=== PATIENT | male | born 1960 | race Caucasian/White ===

== ENCOUNTER 2016-07-01 13:35 | Emergency (ER) ==
[2016-07-01] MEDS ORDERED: NS 1,000 ML IV ONE (14:08)
--- NOTE | 2016-07-01 14:08 | PROVIDER DOCUMENTATION ---
HPI-Male Problem - General Source: patient - History of Present Illness-Male Location of Complaint: reports: suprapubic Quality of Pain: reports: burning, dull Severity in ED: reports: moderate Onset/Duration: reports: abrupt, 24 hours ago Timing: reports: still present Urinary Symptoms: reports: dysuria, hematuria, low back pain. denies: dribbling , frequency, hesitancy, incontinent Associated Symptoms: reports: back/neck pain. denies: fatigue, fever/chills, nausea, vomiting, trouble walking Similar Symptoms Previously?: No Recently seen or treated by another doctor?: No <Chito Benavides - Last Filed: 07/01/16 16:32> - General Source: patient, family <Brayan Rick I - Last Filed: 07/01/16 16:54> - General Chief Complaint: Male Stated Complaint: BLOOD IN URINE Time Seen by Provider: 07/01/16 13:44 Allergies/Adverse Reactions: Patient Allergies Allergy/AdvReac Type Severity Reaction Status Date / Time No Known Allergies Allergy Verified 07/01/16 13:56 Home Medications: Home Medication List Medication Instructions Recorded Confirmed Last Taken Type Sulfamethoxazole/Trimethoprim 1 each PO BID #14 tablet 07/01/16 Unknown Rx [Bactrim Ds Tablet] - History of Present Illness-Male Nature of Presenting Problem: patient is a 55 y/o M that presents to the ER with suprapubic pain and hematuria with dysuria that began 24 hours ago. He does have some left sided back pain. Denies fever/chills, n/v/d. (Chito Benavides) Review of Systems - Adult - REVIEW OF SYSTEMS - ADULT Constitutional: denies: chills, fever Eyes: reports: no symptoms reported Ears, Nose, Mouth & Throat: reports: no symptoms reported Cardiovascular: denies: chest pain, palpitations, syncope Respiratory: denies: cough, shortness of breath, wheezing Gastrointestinal: denies: abdominal pain, diarrhea, nausea, vomiting Genitourinary: reports: dysuria, flank pain, hematuria. denies: discharge, frequency, urinary retention, urgency Musculoskeletal: reports: back pain. denies: joint pain, neck pain Integumentary: reports: no symptoms reported Neurological: reports: no symptoms reported Psychiatric: reports: no symptoms reported Endocrine: reports: no symptoms reported Hematologic/Lymphatic: reports: no symptoms reported Allergic/Immunologic: reports: no symptoms reported All Other Systems: Reviewed and Negative <Chito Benavides - Last Filed: 07/01/16 16:32> Past History - Adult - PAST MEDICAL HISTORY-ADULT Review of Records: reports: Old Records Reviewed, Nursing Assessment Review, Medications Reviewed Gastrointestinal: reports: other (rutured stomach) - PRIOR SURGERIES/PROCEDURES Surgical/Procedure History: reports: appendectomy, cholecystectomy (3/4 stomach removed; jose alfredo fundiplication), tonsillectomy, other (3/4 stomach removed; jose alfredo fu) - PRIOR HOSPITALIZATIONS Prior Hospitalizations: reports: for similar symptoms - IMMUNIZATION STATUS Childhood Immunizations: See Nurse Assessment Flu Vaccine: See Nurse Assessment - FAMILY HISTORY Family History: reviewed, not pertinent - SOCIAL HISTORY Smoking: non-smoker Living Situation: family <Chito Benavides - Last Filed: 07/01/16 16:32> Physical Exam-General - PHYSICAL EXAM-ADULT Initial Vital Signs Reviewed: Yes - CONSTITUTIONAL General Appearance: alert, no apparent distress - EYES Eyes: PERRL/EOMI, pink conjunctivae - HEAD, EARS, NOSE, MOUTH & THROAT HENMT: normocephalic/atraumatic, moist mucous membranes, normal ENT inspection - NECK Neck: full range of motion, normal inspection - RESPIRATORY Respiratory: lungs clear, normal breath sounds, no respiratory distress, no accessory muscle use - CARDIOVASCULAR Cardiovascular: normal peripheral pulses, regular rate, rhythm, no edema, no murmur - GASTROINTESTINAL (ABDOMEN) Abdominal Exam: non tender, soft, no organomegaly, no pulsatile mass - MUSCULOSKELETAL Back Exam: no vertebral tenderness, CVA tenderness (left) Extremity: normal range of motion, non-tender, normal inspection, no pedal edema - SKIN Integumentary: normal color, warm/dry - NEUROLOGIC Neurologic: grossly normal, no motor/sensory deficits - PSYCHIATRIC Psych/Mental Status: normal mood/affect, normal thought content, normal thought process, oriented x 3 <Chito Benavides - Last Filed: 07/01/16 16:32> Progress - CT/MRI 1 CT Study: Abdomen, Pelvis Impression: Abnormal CT Results: mod. distended urinary bladder, thickened krause, no hydro <Chito Benavides - Last Filed: 07/01/16 16:32> <Kailash Ricke I - Last Filed: 07/01/16 16:54> - PLAN OF CARE/RESULTS Progress/Plan/Lab Results: plan of care-labs, ct abd/pelv Vital Signs Temp Pulse Resp BP Pulse Ox 07/01/16 13:39 98.1 F 70 18 137/90 97 No Known Allergies Allergy (Verified 07/01/16 13:56) No Home Medications 07/01/16 I&O 06/30/16 07/01/16 07/02/16 06:59 06:59 06:59 Output Total 70 Balance -70 Laboratory 07/01/16 07/01/16 07/01/16 15:09 14:09 14:09 WBC 9.13 RBC 4.57 L Hgb 13.3 L Hct 38.9 L MCV 85.1 MCH 29.1 MCHC 34.2 RDW Std Deviation 13.2 Plt Count 145 MPV 10.0 Immature Gran % (Auto) 0.0 Neut % (Auto) 64.0 Lymph % (Auto) 23.4 Randolph % (Auto) 11.5 H Eos % (Auto) 0.9 Baso % (Auto) 0.2 Immature Gran # (Auto) 0.00 Neut # (Auto) 5.84 Lymph # (Auto) 2.14 Randolph # (Auto) 1.05 H Eos # (Auto) 0.08 Baso # (Auto) 0.02 PT INR PTT (Actin FS) Sodium 139 Potassium 4.0 Chloride 102 Carbon Dioxide 26 Anion Gap 11 BUN 19 Creatinine 1.1 Estimated GFR/1.73 m2 > 60 BUN/Creatinine Ratio 17 Glucose 87 Calculated Osmolality 279 Calcium 8.7 L Total Bilirubin 0.69 AST 19 ALT 13 Alkaline Phosphatase 60 Total Protein 6.5 Albumin 3.8 Globulin 2.7 Albumin/Globulin Ratio 1.4 Lipase 15 Urine Source CLEAN CATCH Urine Color ORANGE Urine Turbidity TURBID Urine pH 8.0 Ur Specific [place] 1.012 Urine Protein 50 A Ur Glucose (Stick) NEGATIVE Ur Ketones (Stick) NEGATIVE Urine Blood LARGE A Urine Nitrite NEGATIVE Urine Bilirubin NEGATIVE Urobilinogen Dipstick NORMAL Urine Leukocytes LARGE A Urine WBC (Auto) TNTC A Urine RBC (Auto) TNTC A U Epithel Cells (Auto) <10 Urine Bacteria (Auto) NEGATIVE 07/01/16 14:09 WBC RBC Hgb Hct MCV MCH MCHC RDW Std Deviation Plt Count MPV Immature Gran % (Auto) Neut % (Auto) Lymph % (Auto) Randolph % (Auto) Eos % (Auto) Baso % (Auto) Immature Gran # (Auto) Neut # (Auto) Lymph # (Auto) Randolph # (Auto) Eos # (Auto) Baso # (Auto) PT 10.9 INR 1.03 PTT (Actin FS) 25.2 Sodium Potassium Chloride Carbon Dioxide Anion Gap BUN Creatinine Estimated GFR/1.73 m2 BUN/Creatinine Ratio Glucose Calculated Osmolality Calcium Total Bilirubin AST ALT Alkaline Phosphatase Total Protein Albumin Globulin Albumin/Globulin Ratio Lipase Urine Source Urine Color Urine Turbidity Urine pH Ur Specific [place] Urine Protein Ur Glucose (Stick) Ur Ketones (Stick) Urine Blood Urine Nitrite Urine Bilirubin Urobilinogen Dipstick Urine Leukocytes Urine WBC (Auto) Urine RBC (Auto) U Epithel Cells (Auto) Urine Bacteria (Auto) Orders Category Date Time Status ABDOMEN/PELVIS W/CONTRAST [CT] Stat Exams 07/01/16 14:03 Taken CBC WITH DIFF [HEME] Stat Lab 07/01/16 14:09 Completed COMPREHENSIVE METABOLIC PANEL [CHEM] Stat Lab 07/01/16 14:09 Completed LIPASE [CHEM] Stat Lab 07/01/16 14:09 Completed PROTIME WITH INR [COAG] Stat Lab 07/01/16 14:09 Completed PTT [COAG] Stat Lab 07/01/16 14:09 Completed URINALYSIS W/POSS RFLX CULT [URINALYSIS] Stat Lab 07/01/16 15:09 Completed 0.9% Sodium Chloride Inj [Ns] 1,000 ml Med 07/01/16 14:08 Discontinued IV 999 mls/hr Levaquin 500 mg/D5w IV Now Med 07/01/16 16:32 Ordered Levofloxacin 500 mg/D5w [Levaquin 500 mg/D5w] 100 ml IV NOW pt will be d/c home with rx, f/u with pcp, pt was clinically stable, pt understood results and instructions. (Chito Benavides) Departure - Departure Time of Disposition Order: 16:32 (.) Certified Medical Emergency: Emergent <Chito Benavides - Last Filed: 07/01/16 16:32> - Departure Time of Disposition Order: 16:51 Certified Medical Emergency: Emergent <Brayan Rick I - Last Filed: 07/01/16 16:54> - Departure DIAGNOSIS: UTI (urinary tract infection) Qualifiers: Urinary tract infection type: acute cystitis Hematuria presence: with hematuria Qualified Code(s): N30.01 - Acute cystitis with hematuria Disposition: HOME 01 Condition: Stable Additional Instructions: ED Follow Up Instructions: You have been treated by a care provider in the Emergency Department. These instructions are being provided to you so you can have an understanding of how to care for yourself upon discharge. Upon discharge from the Emergency Department, you are responsible for making arrangements for follow-up care by a physician of your choice. Take all prescribed medications as directed. Return to the Emergency Department immediately for any new or worsening symptoms. You may call the Physician Referral phone number at [phone] to obtain a list of Physicians who are taking new patients. Prescriptions: Sulfamethoxazole/Trimethoprim [Bactrim Ds Tablet] 1 each PO BID #14 tablet Referrals: Vinod Mcconnell MD [Primary Care Provider] - Call for Appoint. 1-2days Instructions: Urinary Tract Infection, [id number] Attestation - Scribe Verification/Attestation Scribe:: Chito Benavides Acting as Scribe for:: Brayan Rick Scribe documention review:: This chart was documented by a scribe and accurately reflects the service the provider performed and the decisions made by the provider. <Chito Benavides - Last Filed: 07/01/16 16:32> Physician Attestation - Physician Attestation I, the provider, attest to the following statement:: Brayan Rick Physician documentation Attestation:: This documentation recorded by the scribe accurately reflects the service I personally performed and the decisions made by me. <Chito Benavides - Last Filed: 07/01/16 16:32> - Physician Attestation I, the provider, attest to the following statement:: Brayan Rick Physician documentation Attestation:: This documentation recorded by the scribe accurately reflects the service I personally performed and the decisions made by me. <Brayan Rick I - Last Filed: 07/01/16 16:54>
[2016-07-01 14:22] LABS: MANUAL DIFF NEEDED? NO
[2016-07-01 14:26] LABS: BASO% 0.2 % (0.0-0.8); EOS# 0.08 X1000 (0.0-0.7); EOS% 0.9 % (0.0-10.0); HEMATOCRIT 38.9 % (42.0-52.0); HEMOGLOBIN 13.3 g/dL (14.0-18.0); LYMPH# 2.14 X1000 (1.2-3.4); LYMPH% 23.4 % (20.5-51.1); MCH 29.1 PG (27-31); MCHC 34.2 g/dL (33-37); MCV 85.1 FL (81-99); MONO# 1.05 X1000 (0.11-0.59); MONO% 11.5 % (1.7-9.3); PLT 145 X1000 (130-400); RBC 4.57 XMIL (4.7-6.1)
[2016-07-01 14:36] LABS: INR 1.03; PROTIME 10.9 Seconds (9.2-11.7); PTT 25.2 Seconds (22.0-36.0)
[2016-07-01 14:59] LABS: AGAP 11; ALBUMIN 3.8 g/dL (3.5-5.0); ALKALINE PHOSPHATASE 60 U/L (32-122); BUN 19 mg/dL (8-22); CALCIUM 8.7 mg/dL (8.8-10.2); CHLORIDE 102 mmol/L (98-107); COSMO 279; GOT 19 U/L (10-34); GPT 13 U/L (10-44); LIPASE 15 U/L (13-60); SODIUM 139 mmol/L (136-145); TCO2 26 mmol/L (25-35); TOTAL BILIRUBIN 0.69 mg/dL (0.20-1.00); TOTAL PROTEIN 6.5 g/dL (6.3-8.3)
[2016-07-01 15:20] LABS: URINE CULTURE NEEDED? NO; URINE MICRO REVIEW NEEDED? NO; URINE SOURCE CLEAN CATCH
[2016-07-01 15:25] LABS: UR EPITHELIAL CELLS <10 /HPF (<10); URINE BACTERIA NEGATIVE /HPF; URINE RBC TNTC /HPF (<10); URINE WBC TNTC /HPF (<10)
[2016-07-01 16:03] LABS: BILIRUBIN URINE NEGATIVE (NEGATIVE); BLOOD URINE LARGE (NEGATIVE); COLOR ORANGE; GLUCOSE URINE NEGATIVE (NEGATIVE); LEUKOCYTES URINE LARGE (NEGATIVE); NITRITE URINE NEGATIVE (NEGATIVE); PROTEIN URINE 50 mg/dL (NEGATIVE); SP GRAVITY URINE 1.012; TURBIDITY URINE TURBID (CLEAR); UROBILINOGEN URINE NORMAL (NORMAL)
[2016-07-01] MEDS ORDERED: LEVAQUIN 500 MG/D5W 100 ML IV ONE (16:32)
--- NOTE | 2016-07-01 16:58 | Diag Imaging Result Document ---
PROCEDURE NAME: ABDOMEN/PELVIS W/CONTRAST - 07/01/2016 CT ABDOMEN AND PELVIS WITH CONTRAST: FINDINGS: Exam performed with oral and intravenous contrast. A dose-reduction protocol was used. Compared with 04/22/2014. There is a moderate-sized hiatal hernia similar to the previous exam. There is chronic elevation of the posterior left hemidiaphragm similar to the previous exam. There are no acute abnormalities of the liver, spleen, adrenal glands, or pancreas identified. The gallbladder is surgically absent. There is some prominence of the common bile duct which is stable and compatible with postcholecystectomy change. The bilateral kidneys enhance homogeneously except for a couple of small cysts. There is mild prominence of bilateral extrarenal pelves. There is no gross hydronephrosis or perinephric edema identified. The urinary bladder is moderately distended. The urinary bladder krause appear diffusely thickened. There is some enlargement of the prostate which appears stable. There are no substantially enlarged lymph nodes identified. There is no evidence of bowel obstruction. There is mild uncomplicated colonic diverticulosis. There is some retained fecal debris in the colon. There is no free air, free fluid, or abscess identified. IMPRESSION: 1. Moderately distended urinary bladder. Diffusely thickened urinary bladder krause. 2. Mild fullness of bilateral extrarenal pelves. No substantial hydronephrosis or perinephric edema. The bilateral kidneys enhance homogeneously except for a couple of small cysts. There is stable enlargement of the prostate. 3. No bowel obstruction. Mild uncomplicated colonic diverticulosis. No abscess. No free air. 4. Moderate sized hiatal hernia. Chronic elevation of the posterior left hemidiaphragm. [facility]
[2016-07-01 18:12] VITALS: BP 135/75
== END 2016-07-01 18:17 | disposition home or self-care (01) ==
LOC: ED 13:35
DX: N30.01 Acute cystitis with hematuria (principal); R10.30 Lower abdominal pain, unspecified; R30.0 Dysuria; M54.9 Dorsalgia, unspecified
CPT/HCPCS: 74177; 80053; 81001; 83690; 85025; 85610; 85730; J7030; Q9967